=== PATIENT | female | born 1965 | race Caucasian/White ===

== ENCOUNTER 2017-11-15 13:18 | Emergency (ER) | payer OTHER ==
[~2017-11-15] VITALS: Ht 170.2 cm; Wt 117.9 kg
[~2017-11-15 13:18] MED LIST: APAP650 PO; ASPIRIN325 PO; BIAXIN500 MG PO; CALCIUM + VITA1 EACH PO; CARAFATE 1 GM TA1 G1 PO; CLARITIN10 MG; CLARITIN10 MG PO; COLACE100 MG PO; DICLOFENAC SODI75 MG; DICLOFENAC SODI75 MG PO; ELEMENTAL CALC600 MG PO; HYDROCHLOROTHIA25 M2; HYDROCHLOROTHIA25 M2 PO; HYDROCODONE-AP1 EA11 PO; HYDROCODONE-APA1 TA1; MUCINEX ER PO; MULTIVITAMINS1 EACH PO; NEURONTIN 300300 M1; NEURONTIN 300300 M1 PO; NORCO 7.5-3251 EACH PO; ONE-A-DAY WOMENS PO; OXYCODONE HCL 55 MG PO; PRILOSEC 20 MG20 MG PO; TRAZODONE HCL50 MG; UNICOMPLEX M TA1 TA1; VITAMIN B-122500 MCG PO; VITAMIN B-12500 MCG PO; VITAMIN D1000 UNI1; VITAMIN D2000 UNIT PO; VITAMINC500 PO; XANAX1 MG; XANAX1 MG PO
[2017-11-15] MEDS ORDERED: ZYRTEC10 M5 PO (13:32)
[2017-11-15] MEDS ORDERED: MOBIC15 MG PO (13:32)
[2017-11-15] MEDS ORDERED: MEDROLDOSEPACK PO (14:40)
[2017-11-15 14:52] VITALS: BP 127/75
== END 2017-11-15 14:53 | disposition home or self-care (01) ==
LOC: M.ERS 13:18
DX: R07.0 Pain in throat (principal); F41.9 Anxiety disorder, unspecified; I10 Essential (primary) hypertension; M79.7 Fibromyalgia; F32.9 Major depressive disorder, single episode, unspecified; Z96.659 Presence of unspecified artificial knee joint; Z88.8 Allergy status to other drugs, medicaments and biological substances; Z88.2 Allergy status to sulfonamides; Z88.5 Allergy status to narcotic agent

== ENCOUNTER → 2018-10-06 | Outpatient (CLI) | payer OTHER ==
[~2018-10-06] MED LIST changes: +MEDROLDOSEPACK PO; +MOBIC15 MG PO; +ZYRTEC10 M5 PO
== END ==
LOC: M.ULTRA 09-24 07:30
DX: E04.2 Nontoxic multinodular goiter (principal)

== ENCOUNTER → 2018-10-06 | Outpatient (CLI) | payer OTHER | LOC: M.CT 09-24 08:15 | DX: Z13.6 Encounter for screening for cardiovascular disorders (principal) ==